=== PATIENT | female | born 1945 | race Two or more races ===

== ENCOUNTER 2022-01-14 10:32 | Emergency (ER) | payer OTHER ==
[~2022-01-14] VITALS: Ht 157.5 cm; Wt 59.0 kg
[2022-01-14] MEDS ORDERED: AMLODIPINE BESYL5 MG PO (11:10)
[2022-01-14] MEDS ORDERED: LEVOTHYROXINE50 MCG PO (11:10)
[2022-01-15] MEDS ORDERED: SYNTHROID50 MCG (17:14)
[2022-01-15] MEDS ORDERED: PRESION (17:15)
== END 2022-01-14 17:07 | disposition home or self-care (01) ==
LOC: ER 10:32
DX: R53.1 Weakness (principal); I10 Essential (primary) hypertension; E05.90 Thyrotoxicosis, unspecified without thyrotoxic crisis or storm; G56.91 Unspecified mononeuropathy of right upper limb; R29.898 Other symptoms and signs involving the musculoskeletal system

== ENCOUNTER → 2022-01-15 | Emergency (ER) | payer OTHER ==
[~2022-01-15] VITALS: Ht 157.5 cm; Wt 59.0 kg
[~2022-01-15] MED LIST: AMLODIPINE BESYL5 MG PO; LEVOTHYROXINE50 MCG PO; PRESION; SYNTHROID50 MCG
== END | disposition home or self-care (01) ==
LOC: ER 13:16
DX: I63.81 Other cerebral infarction due to occlusion or stenosis of small artery (principal); R53.1 Weakness; R29.898 Other symptoms and signs involving the musculoskeletal system
CPT/HCPCS: 70551

== ENCOUNTER 2022-01-23 07:33 | Outpatient (CLI) | payer OTHER | END 2022-01-23 07:34 | disposition home or self-care (01) | LOC: NUCLEAR 07:33 | PROVIDERS: ATTEND Psychiatry & Neurology Clinical Neurophysiology | DX: I63.30 Cerebral infarction due to thrombosis of unspecified cerebral artery (principal) ==